=== PATIENT | female | born 1995 | race American Indian/Alaskan Native ===

== ENCOUNTER 2021-05-25 22:32 | Emergency (ER) | payer BC ==
[2021-05-25 22:53] VITALS: BP 122/57
[2021-05-25 23:33] LABS: Basophils # (Auto) 0.1 K/mm3 (0.0-0.1); Basophils % (Auto) 0.7 % (0.0-1.8); Eosinophils # (Auto) 0.5 K/mm3 (0.0-0.4); Eosinophils % (Auto) 5.7 % (0.0-4.3); Hematocrit 34.5 % (30.3-42.9); Hemoglobin 11.8 gm/dl (10.1-14.3); Lymphocytes # (Auto) 2.2 K/mm3 (1.2-5.4); Lymphocytes % (Auto) 26.8 % (13.4-35.0); Mean Corpuscular HGB Conc 34 % (30-34); Mean Corpuscular Volume 89 fl (79-97); Monocytes # (Auto) 0.6 K/mm3 (0.0-0.8); Monocytes % (Auto) 7.6 % (0.0-7.3); Platelet Count 289 K/mm3 (140-440); Red Blood Count 3.87 M/mm3 (3.65-5.03); Red Cell Distribution Width 13.2 % (13.2-15.2)
[2021-05-26 00:14] LABS: Bacteria,Urine 1+ /HPF (Negative); Bilirubin,Urine NEG (Negative); Blood,Urine LG (Negative); Color,Urine Yellow (Yellow); Mucus,Urine FEW /HPF; Protein,Urine <15 mg/dL mg/dL (Negative)
--- NOTE | 2021-05-26 00:45 | Ultrasound Report ---
ULTRASOUND OBSTETRIC REASON FOR EXAM: preg, vag bleeding TECHNIQUE: Transabdominal and transvaginal ultrasound was performed to evaluate a first trimester pre gnancy. COMPARISON: None available. FINDINGS: FINDINGS: The pole, yolk sac, and gestational sac are normal in appearance. [place]-rump length: 6.8 cm. This corresponds with a gestational age of 13 weeks 0 days. heart rate: 152 bpm Perigestational hemorrhage: No evidence of perigestational hemorrhage on the provided images. MATERNAL FINDINGS: The uterus demonstrates an otherwise unremarkable sonographic appearance. The right ovary demonstrates a normal sonographic appearance. The left ovary demonstrates a normal sonographic appearance. Cul-de-sac: There is no free fluid. IMPRESSION: Viable intrauterine . Gestational age is 13 weeks 0 days by ultrasound. Recommend clinical s creening and ultrasound follow-up in the second trimester to screen for anomalies. Signer Name: Estuardo Valdez MD Signed: 05/26/2021 12:41 AM Workstation Name: [id number]
--- NOTE | 2021-05-26 00:45 | Ultrasound Report ---
ULTRASOUND OBSTETRIC REASON FOR EXAM: preg, vag bleeding TECHNIQUE: Transabdominal and transvaginal ultrasound was performed to evaluate a first trimester pre gnancy. COMPARISON: None available. FINDINGS: FINDINGS: The pole, yolk sac, and gestational sac are normal in appearance. [place]-rump length: 6.8 cm. This corresponds with a gestational age of 13 weeks 0 days. heart rate: 152 bpm Perigestational hemorrhage: No evidence of perigestational hemorrhage on the provided images. MATERNAL FINDINGS: The uterus demonstrates an otherwise unremarkable sonographic appearance. The right ovary demonstrates a normal sonographic appearance. The left ovary demonstrates a normal sonographic appearance. Cul-de-sac: There is no free fluid. IMPRESSION: Viable intrauterine . Gestational age is 13 weeks 0 days by ultrasound. Recommend clinical s creening and ultrasound follow-up in the second trimester to screen for anomalies. Signer Name: Estuardo Valdez MD Signed: 05/26/2021 12:41 AM Workstation Name: [id number]
--- NOTE | 2021-05-26 01:07 | Emergency Department Report ---
ED HPI - General Chief complaint: Vaginal Bleeding Stated complaint: SPOTTING/ Time Seen by Provider: 05/25/21 23:08 Source: patient Mode of arrival: Ambulatory Limitations: No Limitations - History of Present Illness Initial comments: 26-year-old black female with past medical history of asthma who is G1, P0 at approximately 13 weeks gestation presents to the emergency department for evaluation of vaginal spotting that started today. She states that she noted spotting when she wiped only. She denies abdominal pain dysuria and fever. She states that her [employer] UP OPERATOR is at [facility]. MD Complaint: vaginal bleeding -: Sudden, hour(s) Radiation: none Severity scale (0 -10): 0 Associated symptoms: vaginal bleeding. denies: nausea/vomiting, vaginal discharge, abdominal pain, dysuria, headache, vision changes, malaise, dysparuenia, rash, seizure, shortness of breath, syncope, weakness Vaginal bleeding: light, other :: Yes (Spotting only) Number of weeks : 13 OB History - Current : no complications Pre-cheli care: followed by OB ([facility]), other - Related Data : 1 Para: 0 Previous Rx's Medication Instructions Recorded Last Taken Type cephALEXin [Keflex] 500 mg PO BID #14 capsule 05/26/21 Unknown Rx Allergies Allergy/AdvReac Type Severity Reaction Status Date / Time No Known Allergies Allergy Unverified 05/25/21 22:53 ED Review of Systems ROS: Stated complaint: SPOTTING/ Other details as noted in HPI Comment: All other systems reviewed and negative Constitutional: denies: chills, diaphoresis, fever, malaise, weakness Eyes: denies: eye pain, eye discharge ENT: denies: ear pain, throat pain Respiratory: denies: cough, shortness of breath Cardiovascular: denies: chest pain, palpitations, dyspnea on exertion, orthopnea, edema, syncope, paroxysmal nocturnal dyspnea Endocrine: no symptoms reported Gastrointestinal: denies: abdominal pain, nausea, vomiting, diarrhea, hematemesis, melena, hematochezia Genitourinary: denies: urgency, dysuria, frequency, hematuria, dyspareunia Musculoskeletal: denies: back pain Skin: denies: rash, lesions Neurological: denies: headache, weakness, numbness, paresthesias, abnormal gait Psychiatric: denies: anxiety, depression ED Past Medical Hx - Past Medical History Previous Medical History?: Yes Hx Asthma: Yes - Surgical History Past Surgical History?: No - Medications Home Medications: Home Medications Medication Instructions Recorded Confirmed Last Taken Type cephALEXin [Keflex] 500 mg PO BID #14 capsule 05/26/21 Unknown Rx ED Physical Exam - General Limitations: No Limitations General appearance: alert, in no apparent distress - Head Head exam: Present: atraumatic, normocephalic - Eye Eye exam: Present: normal appearance. Absent: conjunctival injection - Neck Neck exam: Present: normal inspection. Absent: tenderness - Respiratory Respiratory exam: Present: normal lung sounds bilaterally. Absent: respiratory distress, wheezes, rales, rhonchi, stridor, chest wall tenderness, accessory muscle use - Cardiovascular Cardiovascular Exam: Present: regular rate, normal heart sounds - GI/Abdominal GI/Abdominal exam: Present: soft. Absent: tenderness, guarding, rebound, rigid, normal bowel sounds - Extremities Exam Extremities exam: Present: normal inspection, full ROM - Back Exam Back exam: Present: normal inspection, full ROM. Absent: tenderness, CVA tenderness (R), CVA tenderness (L) - Neurological Exam Neurological exam: Present: alert, oriented X3 - Psychiatric Psychiatric exam: Present: normal affect - Skin Skin exam: Present: warm, dry, intact, normal color ED Course Vital Signs 05/25/21 22:51 Temperature 98.3 F Pulse Rate 70 Respiratory 18 Rate Blood Pressure 122/57 O2 Sat by Pulse 100 Oximetry ED Medical Decision Making - Lab Data Result diagrams: 05/25/21 23:02 - Radiology Data Radiology results: report reviewed OB ultrasound IMPRESSION: Viable intrauterine . Gestational age is 13 weeks 0 days by ultrasound. Recommend clinical screening and ultrasound follow-up in the second trimester to screen for anomali es. - Medical Decision Making 26-year-old black female with past medical history of asthma who is G1, P0 at approximately 13 weeks gestation presents to the emergency department for evaluation of vaginal spotting that started today. She states that she noted spotting when she wiped only. She denies abdominal pain dysuria and fever. She states that her [employer] UP OPERATOR is at [facility]. OB ultrasound positive for intrauterine at 13 weeks, no acute findings noted. UA positive for urinary tract infection. Patient will be treated for urinary tract infection with Keflex 500 mg p.o. twice a day for 7 days. She is encouraged to follow-up with T[employer] UP O[employer]ATOR for further evaluation and continued care. She was advised to follow-up in the emergency department if worsening vaginal bleeding, abdominal pain, abdominal cramping, or fever. Plan of care was reviewed with patient, and she verbalized understanding of and agreement with. Critical care attestation.: If time is entered above; I have spent that time in minutes in the direct care of this critically ill patient, excluding procedure time. ED Disposition Clinical Impression: Vaginal bleeding before 22 weeks gestation UTI (urinary tract infection) Qualifiers: Urinary tract infection type: acute cystitis Hematuria presence: with hematuria Qualified Code(s): N30.01 - Acute cystitis with hematuria Disposition: HOME / SELF CARE / HOMELESS Is pt being admited?: No Does the pt Need Aspirin: No Condition: Stable Instructions: Urinary Tract Infection, Adult, [id number], Vaginal Bleeding During , Second Trimester, [id number] Additional Instructions: Take medications as prescribed. Follow-up with TURNING M[employer]INE [employer] UP OPERATOR for further evaluation. Prescriptions: cephALEXin [Keflex] 500 mg PO BID #14 capsule Referrals: DANYELL AGUILAR MD [Staff Physician] - 3-5 Days Time of Disposition: 01:07
== END 2021-05-26 01:48 | disposition home or self-care (01) ==
LOC: ED 22:32
DX: O46.91 Antepartum hemorrhage, unspecified, first trimester (principal); O23.41 Unspecified infection of urinary tract in pregnancy, first trimester; N39.0 Urinary tract infection, site not specified; Z3A.13 13 weeks gestation of pregnancy; J45.909 Unspecified asthma, uncomplicated
CPT/HCPCS: 36415; 76801; 76817; 81001; 84702; 85025; 86900; 86901; 99284

== ENCOUNTER 2021-10-05 22:55 | Emergency (ER) | payer BC, MEDICAID ==
[2021-10-05 23:16] VITALS: BP 116/62
== END 2021-10-06 02:15 | disposition left against medical advice (07) ==
LOC: ED 22:55
DX: R06.02 Shortness of breath (principal); Z53.21 Procedure and treatment not carried out due to patient leaving prior to being seen by health care provider

== ENCOUNTER 2021-10-09 06:33 | Outpatient (CLI) | payer BC, MEDICAID ==
[2021-10-09 07:03] VITALS: BP 105/58
[2021-10-09] MEDS ORDERED: LACTATED RINGERS 500 ML IV ONE (07:37)
--- NOTE | 2021-10-09 08:06 | Ultrasound Report ---
ULTRASOUND BIOPHYSICAL PROFILE ULTRASOUND OB LIMITED INDICATION: well being, evaluate for abruption TECHNIQUE: Transabdominal ultrasound imaging. COMPARISON: 05/25/2021 FINDINGS: breathing movement = 2 Gross body movement = 2 tone = 2 Qualitative amniotic fluid volume = 2 Total biophysical score = 8/8 Amniotic fluid index is 14.2 cm. Presentation is cephalic. heart rate is 163 beats per minute. Placenta: Posterior, right lateral, grade 1. No evidence for abruption. IMPRESSION: biophysical profile equals 8/8. No evidence for abruption. Signer Name: Jaswinder George Jr, MD Signed: 10/09/2021 8:01 AM Workstation Name: [id number]
[2021-10-09 08:24] LABS: Bilirubin,Urine Negative (Negative); Blood,Urine Large (Negative); Color,Urine Yellow (Yellow); Protein,Urine <30 mg dL mg/dL (Negative)
[2021-10-09 08:28] LABS: Bacteria,Urine 1+ /HPF (Negative); Mucus,Urine 2+ /HPF
[2021-10-09] MEDS ORDERED: ceFAZolin/NS 1 GM/50 ML 1 GM/50 ML BAG IV ONE (09:00)
== END 2021-10-09 10:20 | disposition home or self-care (01) ==
LOC: TRG 06:33 → APU 06:35 → TRG 10:20
PROVIDERS: ATTEND Obstetrics & Gynecology Gynecology
DX: O46.93 Antepartum hemorrhage, unspecified, third trimester (principal); O26.853 Spotting complicating pregnancy, third trimester; O99.513 Diseases of the respiratory system complicating pregnancy, third trimester; J45.909 Unspecified asthma, uncomplicated; O24.419 Gestational diabetes mellitus in pregnancy, unspecified control; Z3A.33 33 weeks gestation of pregnancy
CPT/HCPCS: 59025; 76815; 76819; 81001; 87086; 96365; J0690; J7120; 96360